=== PATIENT | male | born 1975 | race Caucasian/White ===

== ENCOUNTER 2018-03-08 14:36 | Emergency (ER) | payer OTHER | END 2018-03-08 17:39 | disposition home or self-care (01) | LOC: FTE 14:36 | DX: M54.42 Lumbago with sciatica, left side (principal) | CPT/HCPCS: 72131; 99284-25 ==

== ENCOUNTER 2018-03-28 14:31 | Emergency (ER) | payer OTHER ==
[2018-03-28] MEDS: BUPIVACAINE 0.25% (MPF) 10 ML 10 ML VIAL INJ (18:00)
[2018-03-28] MEDS: BUPIVACAINE 0.25% (MPF) 30 ML INJ INJ (18:30)
== END 2018-03-28 19:26 | disposition home or self-care (01) ==
LOC: FTE 14:31
DX: M79.605 Pain in left leg (principal); F17.210 Nicotine dependence, cigarettes, uncomplicated
CPT/HCPCS: 20552; 99283-25